=== PATIENT | female | born 1975 | race Caucasian/White ===

== ENCOUNTER 2019-10-24 19:45 | Emergency (ER) | payer OTHER ==
--- NOTE | 2019-10-24 20:32 | PDOC ---
Rapid Medical Evaluation Time Seen by Provider: 10/24/19 20:03 Medical Evaluation: Allergies Allergy/AdvReac Type Severity Reaction Status Date / Time No Known Allergies Allergy Verified 05/08/15 06:49 10/24/19 20:31 CC: 9wks preg with vaginal bleeding PE: deferred Orders: labs, urine, TVUS Patient will proceed to ER for further evaluation. Discharge Disposition - Diagnosis Vaginal bleeding affecting early - Referrals - Patient Instructions - Post Discharge Activity
[2019-10-24 20:36] VITALS: BP 132/81; PULSE 83; TEMP 97.8; BMI 29.5
--- NOTE | 2019-10-24 22:14 | PDOC ---
Attending Attestation - Resident Resident Name: Kassy Lorenzana - ED Attending Attestation I have performed the following: I have examined & evaluated the patient, The case was reviewed & discussed with the resident, I agree w/resident's findings & plan - HPI HPI: 10/24/19 23:28 see resident hpi - Physicial Exam PE: 10/24/19 23:28 see with resident exam - Medical Decision Making 10/24/19 23:28 44-year-old gravid female, approximately 9 weeks by her own history/dates with vaginal spotting and cramping Plan for serum hCG quantitative, type and screen and ultrasound
[2019-10-24 22:31] LABS: BASO % 0.6 % (0-2.0); EOS % 1.4 % (0-4.5); HEMATOCRIT 40.1 % (32.4-45.2); HEMOGLOBIN 13.6 GM/dL (10.7-15.3); LYMPH % 24.9 % (8-40); MCHC 33.8 g/dl (32.0-36.0); MEAN CELL VOLUME 85.6 fl (80-96); MEAN PLT VOLUME 9.4 fl (7.5-11.1); MONO % 5.1 % (3.8-10.2); PLATELET COUNT 237 K/MM3 (134-434); RBC 4.68 M/mm3 (3.60-5.2); RDW 14.3 % (11.6-15.6)
[2019-10-24 22:43] LABS: INR 0.93 (0.83-1.09)
[2019-10-24 22:46] LABS: ACTIVATED PTT 29.2 SECONDS (25.2-36.5)
[2019-10-24 23:01] LABS: BLOOD UREA NITROGEN 10.5 mg/dL (7-18); CALCIUM 9.3 mg/dL (8.5-10.1); CREATININE 0.6 mg/dL (0.55-1.3); POTASSIUM 3.8 mmol/L (3.5-5.1)
--- NOTE | 2019-10-24 23:38 | PDOC ---
History of Present Illness - General Chief Complaint: Vaginal Bleeding Stated Complaint: 8-9/WKS//VAGINAL/BLEEDING Time Seen by Provider: 10/24/19 20:03 History Source: Patient, Family Exam Limitations: Language Barrier - History of Present Illness Initial Comments: 10/24/19 23:34 44y F with no significant PMH at 9w gestation per lmp presenting to ED with complaints of vaginal bleeding that started today prior to arrival to ED. Pt states she used 1 pad so far and saw a lot of blood but now is just some spotting. She has not had a sonogram yet. She denies abdominal pain, n/v/d, fevers, chills, back pain, headache, chest pain, sob. PMD: PMH: none PSH: c=section Allergies: nkda Social: denies Meds: none Past History - Past Medical History Allergies/Adverse Reactions: Allergies Allergy/AdvReac Type Severity Reaction Status Date / Time No Known Allergies Allergy Verified 05/08/15 06:49 Home Medications: Ambulatory Orders Vit/Iron Fumarate/FA [ Tablet] 1 each PO DAILY 05/08/15 Acetaminophen [Tylenol .Regular Strength -] 650 mg PO Q4H PRN #0 tablet Ferrous Sulfate [Feosol] 325 mg PO BID #60 ud 05/11/15 Ibuprofen [Motrin -] 600 mg PO Q4H PRN #30 tablet 05/11/15 Vitamins (Sjr) - 1 tab PO DAILY tablet 05/11/15 Cephalexin Monohydrate [Keflex -] 500 mg PO BID #14 capsule 10/25/19 Asthma: No Cancer: No Cardiac Disorders: No Diabetes: No HTN: No Seizures: No Thyroid Disease: No - Psycho Social/Smoking Cessation Hx Smoking History: Never smoked Hx Alcohol Use: No Drug/Substance Use Hx: No Hx Substance Use Treatment: No Review of Systems - Review of Systems Constitutional: No: Symptoms Reported HEENTM: No: Symptoms Reported Respiratory: No: Symptoms reported, Hemoptysis ABD/GI: No: Symptoms Reported : Yes: See HPI Musculoskeletal: No: Symptoms Reported Integumentary: No: Symptoms Reported Neurological: No: Symptoms reported *Physical Exam - Vital Signs Last Vital Signs Temp Pulse Resp BP Pulse Ox 97.8 F 83 20 132/81 100 10/24/19 20:33 10/24/19 20:33 10/24/19 20:33 10/24/19 20:33 10/24/19 20:33 - Physical Exam General Appearance: Yes: Nourished, Appropriately Dressed. No: Apparent Distress HEENT: positive: EOMI, LIZETTE, Normal ENT Inspection Neck: positive: Trachea midline, Supple Respiratory/Chest: positive: Lungs Clear, Normal Breath Sounds Cardiovascular: positive: Regular Rhythm, Regular Rate, S1, S2. negative: Edema , JVD, Murmur Female Pelvic Exam: positive: normal external exam, vaginal bleeding. negative : cervical os closed (os open), CMT Gastrointestinal/Abdominal: positive: Normal Bowel Sounds, Soft. negative: Tender Musculoskeletal: negative: CVA Tenderness Extremity: positive: Normal Capillary Refill Integumentary: positive: Normal Color, Dry, Warm Neurologic: positive: firmware engineer II-XII NML intact, Fully Oriented, Alert, Normal Mood/ Affect, Normal Response, Motor Strength / ED Treatment Course - LABORATORY CBC & Chemistry Diagram: 10/24/19 22:20 10/24/19 22:20 - ADDITIONAL ORDERS Additional order review: Laboratory Results 10/24/19 10/24/19 10/24/19 22:20 22:20 22:20 PT with INR INR PTT (Actin FS) Sodium 137 Potassium 3.8 Chloride 106 Carbon Dioxide 20 L Anion Gap 11 BUN 10.5 Creatinine 0.6 Est GFR (CKD-EPI)AfAm 129.39 Est GFR (CKD-EPI)NonAf 111.64 Random Glucose 89 Calcium 9.3 Beta HCG, Quant 49864.0 Blood Type A POSITIVE Antibody Screen Negative 10/24/19 22:20 PT with INR 11.00 INR 0.93 PTT (Actin FS) 29.2 Sodium Potassium Chloride Carbon Dioxide Anion Gap BUN Creatinine Est GFR (CKD-EPI)AfAm Est GFR (CKD-EPI)NonAf Random Glucose Calcium Beta HCG, Quant Blood Type Antibody Screen 10/24/19 22:20 RBC 4.68 MCV 85.6 MCHC 33.8 RDW 14.3 D MPV 9.4 Neutrophils % 68.0 Lymphocytes % 24.9 D Monocytes % 5.1 Eosinophils % 1.4 Basophils % 0.6 Medical Decision Making - Medical Decision Making 10/24/19 23:39 44y F presenting to ED with vaginal bleeding. LMP 08/21/2019, around 9weeks . no confirmatory us done yet. ectopic v. (threatened v. inevitable). labs ordered by rme. pending tvus. pending urine. 10/25/19 00:37 labs wnl. urine sent. will treat if infected. will advise pt to return to marketing project specialist in 2 days for rpt blood work and us. pt verbalized understanding. given return precautions. 10/25/19 00:47 Ultrasound :Uterus is midline and measures 13.5centimeters in length. There is a single live IUP with estimated gestational age of 11weeks and 0days. There is a normal heart rate of 166beats per minute. There is no subchorionic bleed. The right ovary measures 3.7centimeters in length and contains a 1.5 cm cyst. The left ovary measures 2.8centimeters in length and appears normal. There is no significant free fluid. 10/25/19 01:13 UA postive for infection. will send rx for keflex. does not require rhogam at this time. Discharge - Discharge Information Problems reviewed: Yes Clinical Impression/Diagnosis: Vaginal bleeding affecting early Condition: Stable Disposition: HOME - Admission No - Additional Discharge Information Prescriptions: Cephalexin Monohydrate [Keflex -] 500 mg PO BID #14 capsule - Follow up/Referral Referrals: Sudha Reyes MD [Primary Care Provider] - - Patient Discharge Instructions Patient Printed Discharge Instructions: DI for Vaginal Bleeding During Additional Instructions: Hoy te vieron en la ramírez de emergencias por sangrado vaginal. Se realizaron los anlisis de twan y la ecografa. Los resultados se le park proporcionado. Existe la posibilidad de aborto involuntario. Le recomiendo que anabel cris kris con mitchell obstetra / gineclogo en dos contreras para repetir los anlisis de twan y repetir la ecografa. Regrese a la ramírez de emergencias si el sangrado empeora, si tiene dolor abdominal o si se desarrolla algn sntoma nuevo o preocupante. Se envi cris receta para un antibitico a mitchell farmacia. Tmelo chacha se le indique. Felipe You were seen in the emergency room today for vaginal bleeding. The blood work and ultrasound were done. The results have been provided to you. There is a possibility of miscarriage. I recommend that you make an appointment with your marketing project specialist in two days to repeat blood testing and repeat ultrasound. Please come back to the emergency room if bleeding gets worse, you have abdominal pain or if any new or concerning symptom develops. Thank you Print Language: LUX[place]ISH - Post Discharge Activity Work/Back to School Note: Back to Work
[2019-10-25 00:45] LABS: EPI CELLS 4.9 /HPF (0-5/HPF); HYALINE CASTS 25 /lpf (0-8); URINE APPEARANCE TURBID; URINE BACTERIA 98.1 /hpf (NEGATIVE); URINE BILIRUBIN NEGATIVE (NEGATIVE); URINE COLOR ORANGE; URINE GLUCOSE (UA) NEGATIVE (NEGATIVE); URINE KETONE TRACE (NEGATIVE); URINE LEUK ESTERASE 2+ (NEGATIVE); URINE NITRITE NEGATIVE (NEGATIVE); URINE PROTEIN 1+ (NEGATIVE); URINE RBC 469 /hpf (0-4); URINE UROBILINOGEN 0.2 mg/dL (0.2-1.0); URINE WBC 43 /hpf (0-5)
== END 2019-10-25 01:24 | disposition home or self-care (01) ==
LOC: JER 19:45
DX: O26.891 Other specified pregnancy related conditions, first trimester (principal); O20.8 Other hemorrhage in early pregnancy; O23.31 Infections of other parts of urinary tract in pregnancy, first trimester; O34.81 Maternal care for other abnormalities of pelvic organs, first trimester; N83.291 Other ovarian cyst, right side; Z3A.11 11 weeks gestation of pregnancy
CPT/HCPCS: 36415; 76801-TC; 80048; 81003; 84702; 84703; 85025; 85610; 85730; 86850; 86900; 86901; 99281-25

== ENCOUNTER 2020-05-12 06:00 | Inpatient (IN) | payer OTHER ==
[2020-05-12 06:38] VITALS: BMI 32.5
[2020-05-12] MEDS ORDERED: ceFAZolin SODIUM 1 GM VIAL ONE (07:45)
[2020-05-12] MEDS ORDERED: morphine SULFATE/PF 0.5 MG/ML (2cc Syringe - QUVA) ONE (07:45)
[2020-05-12] MEDS ORDERED: OXYTOCIN 20 UNITS in 0.9% NS 20 UNIT/1,000 ML INFUS.BAG IV ONE ×2 (07:56→10:47)
[2020-05-12] MEDS ORDERED: PHENYLEPHRINE HCL 10 MG/1 ML SINGLE DOSE VIAL ONE (08:03)
--- NOTE | 2020-05-12 08:20 | HP ---
Past Medical History - Admission History of Present Illness: 44yo @ 39wks by LMP/sono here for scheduled RTLCS, BTL No VB/LOF. No ctx. +FM today. No complaints. Preg c/b: AMA, GDMA1, 2 prior C/S, 1 PTD at 36 weeks PNC @ [address] [place], [facility] care; with [facility] care at [facility] History Source: Patient Limitations to Obtaining History: No Limitations - Past Medical History SHOP MANAGER: No: Alzheimer's, CVA, Dementia, Migraine, Multiple Sclerosis, Peripheral Neuropathy, Parkinson's, Seizure, Syncope, TIA, Vertigo, Other Cardiovascular: Yes: HTN (during last only). No: Murmur Pulmonary: No: Asthma, Bronchitis, Cancer, COPD, O2 Dependent, Pneumonia, Previously Intubated, Pulmonary Embolus, Pulmonary Fibrosis, Sleep Apnea, Other Gastrointestinal: No: Ascites, Cancer, Constipation, Crohn's Disease, Diverticulitis, Diverticulosis, Esophageal Varices, Gastritis, GERD, GI Bleed, Hemorrhoids, Hiatal Hernia, Inflamatory Bowel Disease, Irritable Bowel Disease, Pancreatitis, Peptic Ulcer Disease, Ulcerative Colitis, Other Hepatobiliary: No: Cirrhosis, Cholelithiasis, Cholecystitis, Choledocholithiasis, Hepatitis A, Hepatitis B, Hepatitis C, Other Reproductive: No: Ectopic , Endometriosis, Fibroids, PID, Polycystic Ovary Syndrome, Postmenopausal, Other ...: 6 ...Para: 4 ...Term: 3 ...: 1 ...Spon : 0 ...Induced : 1 ...Living Children: 4 ...Multiple Gestation: 0 ...LMP: 08/18/19 ... Weeks Gestation by Dates: 38.2 ...EDC by Dates: 05/24/20 ...EDC by Sono: 05/15/20 Heme/Onc: Yes: Anemia Infectious Disease: No: AIDS, C-Diff, Herpes Zoster, HIV, MRSA, STD's, Tuberculosis, VREF, Other Psych: No: Addictions, Anxiety, Bipolar, Depression, Panic, Psychosis, Schizophrenia, Other Musculoskeletal: No: Bursitis, Chronic low back pain, Hemiparesis, Hemiplegia, Osteoarthritis, Paraplegia, Other Rheumatology: No: Fibromyalgia, Gout, Lupus, Rheumatoid Arthritis, Sarcoidosis, Vasculitis, Other ENT: No: Allergic Rhinitis, Sinusitis, Other Endocrine: No: Goodland's Disease, Ema's Disease, Diabetes Insipidus, Diabetes Mellitus, Hyperparathyroidism, Hyperthyroidism, Hypothyroidism, Osteopenia, SIADH, Other Dermatology: No: Basal Cell, Cellulitis, Eczema, Melanoma, Psoriasis, Squamous Cell, Other - Past Surgical History Past Surgical History: Yes: Hx Myomectomy: No Hx Transabdominal Cerclage: No - Advance Directives Advance Directives: No: Living Will, Health Care Proxy, DNR, Organ Donor, Tissue Donor, MOLST - Smoking History Smoking history: Never smoked Have you smoked in the past 12 months: No - Alcohol/Substance Use Hx Alcohol Use: No History of Substance Use: reports: None - Social History Usual Living Arrangement: Yes: With Spouse Do you think of yourself as: Straight/Heterosexual ADL: Independent History of Recent Travel: No Home Medications - Allergies Allergies/Adverse Reactions: Allergies Allergy/AdvReac Type Severity Reaction Status Date / Time No Known Allergies Allergy Verified 05/12/20 06:50 - Home Medications Home Medications: Ambulatory Orders Vitamins (Sjr) - 1 tab PO DAILY tablet 05/11/15 Physical Exam - Maternity Vital Signs: Vital Signs Temperature 98.1 F 05/12/20 06:26 Pulse Rate 78 05/12/20 06:26 Respiratory Rate 20 05/12/20 06:26 Blood Pressure 123/85 05/12/20 06:26 O2 Sat by Pulse Oximetry (%) Constitutional: Yes: Well Nourished, No Distress, Calm - Abdominal Exam/OB Number of Fetuses: Single Presentation: Vertex Contractions: No Monitor Mode: External Heart Rate Location: [facility] Category: I Accelerations: Non-Uniform Decelerations: None - Vaginal Exam/OB Vaginal Bleeding: No - Physical Exam Edema: No Imaging - Results Ultrasound: Report Reviewed Assessment/Plan 44yo @ 39wks here for RLTCS, BTL Admit to L&D NPO, IVFs Labs done, COVID negative Ancef SCDs/Butterfield Risks reviewed including bleeding, infection, injury to surrounding tissue; permanent nature of BTL reviewed in [place]. All questions answered. Consents signed. Stacie Seth MD
[2020-05-12] MEDS ORDERED: CITRIC ACID/SODIUM CITRATE 30 ML UNIT-DOSE CUP PO ONE (08:22)
[2020-05-12] MEDS ORDERED: OXYTOCIN 10 UNITS/ML VIAL ONE (08:28)
[2020-05-12] MEDS ORDERED: ELECTROLYTE-148 SOLN 1,000 ML IV SCH (08:30)
[2020-05-12] MEDS: OXYTOCIN 20 UNITS in 0.9% NS 20 UNIT/1,000 ML INFUS.BAG IV SCH ×3 (08:36→18:04)
[2020-05-12] MEDS ORDERED: KETOROLAC TROMETHAMINE 30 MG/1 ML VIAL ONE (08:43)
--- NOTE | 2020-05-12 09:30 | OP ---
Operative Note - Note: Operative Date: 05/12/20 Pre-Operative Diagnosis: 39 week , Prior , GDMA1, AMA Operation: Repeat Low Transverse , Bilateral Tubal Ligation Findings: VMI, LOT, no nuchal, no meconium. Apgars 9/9 Normal right fallopian tube, right ovary and left ovary; left fallopian tube with adhesions to to the uterus and left ovary Surgeon: Esther Seth Finished Cigar Maker: Aramis Hughes Anesthesia: Spinal Specimens Removed: Bilateral Fallopian Tubes Estimated Blood Loss (mls): 600 Drains, Volume Out (mls): 100 (clear urine) Operative Report Dictated: Yes
[2020-05-12] MEDS ORDERED: METHYLERGONOVINE MALEATE 0.2 MG/1 ML AMP IM PRN (09:31)
[2020-05-12] MEDS ORDERED: oxyCODONE HCL 5 MG TABLET PO PRN (09:31)
[2020-05-12] MEDS ORDERED: IBUPROFEN 800 MG/8 ML IJ IVPB PRN (09:31)
[2020-05-12] MEDS ORDERED: SIMETHICONE 80 MG TAB.CHEW (FP) PO PRN (09:31)
[2020-05-12] MEDS ORDERED: ONDANSETRON 4 MG/2 ML VIAL IVPUSH PRN (09:41)
[2020-05-12] MEDS ORDERED: ACETAMINOPHEN 1000 MG/100 ML VIAL (NON FORMULARY) IVPB PRN (09:42)
--- NOTE | 2020-05-12 17:03 | OP ---
DATE OF OPERATION: 05/12/2020 PREOPERATIVE DIAGNOSIS: A 39 week , prior section, gestational diabetes A1, advanced maternal age. POSTOPERATIVE DIAGNOSIS: A 39 week , prior section, gestational diabetes A1, advanced maternal age. PROCEDURE: Repeat low transverse section. Bilateral tubal ligation. ANESTHESIA: Spinal. SURGEON: Esther Seth MD. EDGER MACHINE SETTER: EDGAR Lopez. ESTIMATED BLOOD LOSS: 600. INTRAVENOUS FLUIDS: Per anesthesia record. URINE OUTPUT: 100 mL of clear urine at the end of the procedure. FINDINGS: Viable male infant, LOT position, no nuchal, no meconium, Apgars 9 and 9, normal right fallopian tube, normal right ovary, normal left ovary, left fallopian tube with adhesions to uterus and left ovary. COMPLICATIONS: None. CONDITION: Stable to recovery room. DESCRIPTION OF PROCEDURE: After appropriate consents were signed, patient was taken to the operating room. Spinal anesthesia was administered. The abdomen was prepped and draped in the normal sterile fashion. A sterile Butterfield catheter had been inserted prior to entry into the operating room. Timeout was performed confirming correct patient and procedure. A Pfannenstiel incision was made through the previous incision and carried through to the underlying layers until the fascia was nicked in the midline. Fascia was then extended laterally with the Britt scissors. The inferior aspect of the fascia was grasped with the Lizzy clamps, tented upwards, and the rectus muscles dissected off bluntly and with the Britt scissors. Attention was then paid to the superior aspect which was taken down in a similar fashion. The rectus muscles were then bluntly in the midline. The peritoneum was entered bluntly. Bladder blade was fitted. Bladder flap was created with the Metzenbaums and digitally. Bladder blade was readjusted. The uterus was incised in a low transverse fashion. Clear amniotic fluid was noted. The 's head was delivered without difficulty after the remaining shoulders and body. The cord was clamped and cut, the was handed off to the waiting NICU staff. The placenta was removed manually. The uterus was cleared all clot and debris. The uterus was then exteriorized. The hysterotomy was closed with a single layer with 1-0 Vicryl, and the area essentially had to be reinforced for hemostasis with an additional 1-0 Vicryl. Attention was then paid to the tubal sterilization. Patient's right fallopian tube was grasped with the Richmond, carried to the fimbriated edges of which were noted to be normal. In the isthmic portion of the tube the Galdino was replaced. The tube was then suture ligated in the modified Pevely fashion with good hemostasis noted. Tubal stump was removed with the Metzenbaum and sent off to pathology. Attention was then paid to the patient's right fallopian tube which was noted to be adherent to the uterine sidewall. Using the Bovie, an area in the mesosalpinx was opened to allow for mobilization of the tube. The tube was clamped to 2 Michelle clamps in the central portion of the fallopian tube. The tubal stumps were then tired off. The fallopian tube was then removed with the Metzenbaum scissors. To achieve hemostasis, additional ties of 0 plain were placed along the fallopian tube stumps to achieve hemostasis. Attention was then paid to the patient's right fallopian tube stump which had to be restabilized with an additional tie to maintain hemostasis. Hysterotomy was noted to be hemostatic. There was an area just north of the patient's right hysterotomy edge which had to be cauterized and then sutured to achieve hemostasis. The uterus was then returned to the abdominal cavity. All operative sites including both tubal sites were checked and noted to be hemostatic with hysterotomy. Additional site also checked and noted to be hemostatic. Gutters were cleared of all clots and debris. The muscles were then reapproximated with the 2-0 chromic. The fascia was closed with 0 Vicryl. Subcutaneous fat was closed with 2-0 plain. Skin was closed with a 3-0 Biosyn. Sponge, lap, needle count was correct x3. Patient did receive Ancef at the start of the procedure. She was taken from the operating room to the recovery area in stable condition. MD DEBBY HUFF/[id number]
[2020-05-13] MEDS: ACETAMINOPHEN 325 MG TABLET (FP) PO PRN ×3 (01:01→21:24)
--- NOTE | 2020-05-13 07:43 | PN ---
Post Progress Note - Subjective Subjective: Not yet ambulating, mock is out, not passing flatus yet, no N/V, lochia decreased, breast feeding Post Day: 1 Type of Delivery: Repeat C/S Vital Signs: Vital Signs Temperature 98.3 F 05/13/20 06:00 Pulse Rate 73 05/13/20 06:00 Respiratory Rate 05/13/20 06:00 Blood Pressure 101/74 05/13/20 06:00 O2 Sat by Pulse Oximetry (%) 99 05/12/20 11:20 Breast Exam: Yes: Soft Uterus: Yes: Fundus Firm Incision: Yes: Dressing dry and intact, Sutures intact Abdomen/GI: Yes: Abdomen soft Lochia, amount: Moderate Extremities: Yes: Calves non-tender Perineum: Yes: Intact Activity: Other (pending) Assessment/Plan POD # 1 in sable condition -COntinue PP/post-op care -Encourage ambulation -F/U AM CBC
[2020-05-13 08:02] LABS: BASO % 0.3 % (0-2.0); EOS % 0.6 % (0-4.5); HEMATOCRIT 31.4 % (32.4-45.2); HEMOGLOBIN 10.6 GM/dL (10.7-15.3); LYMPH % 17.8 % (8-40); MCHC 33.8 g/dl (32.0-36.0); MEAN CELL VOLUME 88.7 fl (80-96); MEAN PLT VOLUME 10.4 fl (7.5-11.1); MONO % 5.6 % (3.8-10.2); NEUT % 75.7 % (42.8-82.8); PLATELET COUNT 136 K/MM3 (134-434); RBC 3.54 M/mm3 (3.60-5.2); RDW 14.4 % (11.6-15.6); WHITE BLOOD COUNT 10.5 K/mm3 (4.0-10.0)
--- NOTE | 2020-05-13 08:28 | PN ---
Progress Note (short form) - Note Progress Note: POD# 1 s/p repeat c/s under spinal anesthesia with intrathecal duramorph. Doing well, mild puritus, pain controlled. All questions answered.
[2020-05-13] MEDS ORDERED: BISACODYL 10 MG SUPP.RECT RC PRN (09:31)
[2020-05-13] MEDS: IBUPROFEN 600 MG TABLET (FP) PO PRN ×2 (14:55→21:24)
--- NOTE | 2020-05-14 08:15 | DS ---
Physical Exam-PERSONNEL SECURITY ASSISTANT Vital Signs: Vital Signs Temperature 98.9 F 05/13/20 22:00 Pulse Rate 79 05/13/20 22:00 Respiratory Rate 18 05/13/20 22:00 Blood Pressure 117/71 05/13/20 22:00 O2 Sat by Pulse Oximetry (%) 99 05/12/20 11:20 Constitutional: Yes: Well Nourished, Obese, Other (painscale /10. pt requests for discharge today) Eyes: Yes: WNL HENT: Yes: WNL Neck: Yes: WNL Cardiovascular: Yes: WNL Respiratory: Yes: WNL Gastrointestinal: Yes: WNL, Normal Bowel Sounds, Soft, Other (bm not done . tolerating diet). No: Distention Renal/: Yes: WNL ....Post : Yes: Uterus firm, Uterus non-tender, Moderate lochia rubra Breast(s): Yes: WNL (breast & bottle feeding) Musculoskeletal: Yes: WNL Extremities: Yes: WNL. No: Calf Tenderness Edema: LLE: 1+, RLE: 1+ Wound/Incision: Yes: Clean/Dry, Well Approximated, Sutures Intact, Steri Strips, Open to air Neurological: Yes: WNL, Other (c/o pain rt side from flank downwards towards her knee , sciatica like pain, relieved by correcting posture) ...Motor Strength: WNL Psychiatric: Yes: WNL, Alert, Oriented Labs: CBC, BMP 05/13/20 07:25 Delivery - Delivery Type of Anesthesia: Spinal Episiotomy/Laceration: None EBL (cc): 600 Delivery, Single - Stages of Labor Date of Delivery: 05/12/20 Time of Delivery: 08:35 Time Placenta Delivered: 08:36 - Condition of Carbon Printer/Fiberglass Boat Assembly Supervisor Present: Yes Name: Ele Buckner Gender: Male Weight: 6 lb 10 oz Position: Left, OT Total Hours ROM (Hrs/Mins): 2mins - 1 Minute Total Score: 9 5 Minutes Total Score: 9 - Feeding Plan Initial Plan: Elected not to breastfeed exclusively throughout hospitalization Remarks - Remarks Remarks: po stable. ambulating well discharge as per pt request today po instructions given Discharge Summary Problems reviewed: Yes Reason For Visit: SCHEDULED Current Active Problems Delivery by (planned) section occurring after 37 completed weeks of gestation but before 39 completed weeks gestation due to (spontaneous) onset of labor, with mention of complication (Acute) Multiparity (Acute) Status post tubal ligation at time of delivery, current hospitalization (Acute) Condition: Stable - Instructions Diet, Activity, Other Instructions: Discharge Instructions * Out of Bed * * Regular Diet * Edilma Care * Avoid sex for 6 weeks * rtc 1 week for wound check If you experience excessive bleeding or fever over 101 degrees, call doctor, the clinic or go to the Emergency Room. Referrals: Earl Henriquez MD [Primary Care Provider] - Esther Seth MD [Staff Physician] - Disposition: HOME - Home Medications Comprehensive Discharge Medication List: Ambulatory Orders Acetaminophen [Tylenol .Regular Strength -] 500 mg PO Q4H PRN #30 tablet 05/14/20 Ibuprofen [Motrin -] 600 mg PO Q4H PRN #30 tablet 05/14/20 Vitamins (Sjr) - 1 tab PO DAILY #30 tablet 05/14/20
[2020-05-14] MEDS: ACETAMINOPHEN 325 MG TABLET (FP) PO PRN (10:00)
[2020-05-14] MEDS: IBUPROFEN 600 MG TABLET (FP) PO PRN (10:00)
[2020-05-14] MEDS: OXYTOCIN 20 UNITS in 0.9% NS 20 UNIT/1,000 ML INFUS.BAG IV SCH (10:01)
[2020-05-14 11:50] VITALS: BP 124/76; PULSE 84; TEMP 98.6
--- NOTE | 2020-05-19 15:38 | PATH ---
Surgical Pathology Report Patient Name: HEMALATHA TENORIO [facility]. Rec. #: [id number] /Age/Gender: 1975 (Age: 44) / F Account: [id number] Location: [facility] OBS/FISHERIES MANAGER Taken: 05/12/2020 Received: 05/13/2020 Reported: 05/19/2020 Physicians: Esther Seth Specimen(s) Received A: PLACENTA B: RIGHT FALLOPIAN TUBE C: LEFT FALLOPIAN TUBE Clinical History , 38.2 weeks, x2, previous x2 Gestational diabetes-diet controlled, positive GBS Final Diagnosis A. PLACENTA, SECTION: 400 G THIRD TRIMESTER PLACENTA WITH TRIVASCULAR UMBILICAL CORD AND UNREMARKABLE PLACENTAL MEMBRANES. B. FALLOPIAN TUBE, RIGHT, PARTIAL EXCISION: FULL LUMINAL PORTION OF FALLOPIAN TUBE WITH PARATUBAL CYST. C. FALLOPIAN TUBE, LEFT, PARTIAL EXCISION: FULL LUMINAL PORTION OF FALLOPIAN TUBE WITH FOCAL DECIDUALIZED STROMA. Electronically Signed Sudha Donovan M.D. Gross Description A. The specimen is received fresh labeled placenta and is a 400 gram, 15.0 x 11.5 x 3.4 cm. placenta with attached membranes and umbilical cord. The attached membranes are muniz, translucent with focal opacities and insert marginally. The umbilical cord measures 44 cm. in length and averages 1.1 cm. in diameter. The cord inserts eccentrically, 3 cm. to the nearest margin. No true knots or strictures are identified. Cut surface of the umbilical cord reveals 3 vessels. The surface is mario-blue with minimal fibrin deposition and appropriate caliber vessels. The maternal surface is red-brown with focal defects. Sectioning reveals red-brown, spongy parenchyma. No lesions are identified. Delivery Crew Worker sections are submitted in three cassettes as follows: 1- membrane rolls and umbilical cord; 2-3- full thickness sections of placenta. B. Received in formalin labeled "right fallopian tube," is a 1.4 cm in length portion of fallopian tube. No fimbria are present. The outer surface is muniz-blake and smooth. Sectioning reveals an unremarkable lumen. Delivery Crew Worker sections are submitted in one cassette. C. Received in formalin labeled "left fallopian tube," is a 0.5 cm in length portion of fallopian tube. No fimbria are present. The outer surface is muniz-blake and smooth. Sectioning reveals an unremarkable lumen. The specimen is bisected and entirely submitted in one cassette. 05/16/2020 [facility]05/16/2020
== END 2020-05-14 12:04 | disposition home or self-care (01) | DRG 540 ==
LOC: JLDR 06:00 → J3W 11:15
PROVIDERS: ADMIT Obstetrics & Gynecology; ATTEND Obstetrics & Gynecology
PROC: 10D00Z1 Extraction of Products of Conception, Low, Open Approach (ICD-10-PCS; principal; 2020-05-12)
PROC: 0UB70ZZ Excision of Bilateral Fallopian Tubes, Open Approach (ICD-10-PCS; 2020-05-12)
DX: O34.211 Maternal care for low transverse scar from previous cesarean delivery (principal); N85.8 Other specified noninflammatory disorders of uterus; O24.429 Gestational diabetes mellitus in childbirth, unspecified control; Z3A.39 39 weeks gestation of pregnancy; Z30.2 Encounter for sterilization; O99.214 Obesity complicating childbirth; Z37.0 Single live birth
CPT/HCPCS: 36415; 85025; 88302-TC; 88307-TC; J0131